=== PATIENT | female | born 1950 | race Caucasian/White ===

== ENCOUNTER 2018-06-28 18:08 | Inpatient (IN) | payer OTHER ==
[2018-06-28] MEDS ORDERED: NS 500 ML IV ONE (18:18)
--- NOTE | 2018-06-28 18:39 | EDPHY ---
H & P Time Seen by Provider: 06/28/18 18:10 HPI/ROS: HPI Swollen painful left leg. 67-year-old female by private vehicle. This patient flew here from [place] on June 18. She reports that for the last 2 weeks she has had intermittent swelling and a sensation of fullness and tightness in her left lower extremity. She reports that she would notice swelling but that it would go away. She reports over the last 2 days the swelling has been more persistent and has not gone away and she has had pain which she describes as a tight feeling throughout her left lower extremity. She reports that for the last 24 hr the swelling has gotten worse and she has developed a purplish discoloration to the entire left lower extremity. Denies chest pain or shortness of breath. She is on hormone replacement therapy, Premarin. No history of coagulopathy. ROS: Constitutional: No fever, no chills. No weakness. Eyes: No discharge. No changes in vision. ENT: No sore throat. No nasal congestion or rhinorrhea. Respiratory: No cough. No shortness of breath. Cardiac: No chest pain, no palpitations. Gastrointestinal: No abdominal pain, no vomiting, no diarrhea. Genitourinary: No hematuria. No dysuria or increased frequency with urination. Musculoskeletal: No back pain. No neck pain. As above. Skin: As above. Neurological: No headache. No focal weakness or altered sensation. Past medical history: Cholecystectomy, appendectomy, tonsillectomy, Paget's disease of bone. As above. Social history: Nonsmoker. Here by herself. She is from [place]. Physical Exam: General Appearance: Alert, no distress. This patient is responding to questions appropriately and in full sentences. This patient appears well- hydrated and well-nourished. Eyes: Pupils equal and round no pallor or injection. No lid edema, erythema or injection. Left lower extremity exam: Diffuse swelling and asymmetrical enlargement relative to the right lower extremity throughout. She has a faint ecchymosis throughout her thigh and leg which is circumferential. She has normal capillary refill and sensation in her toes. She has a palpable dorsalis pedis pulse and the left lower extremity is overall neurovascularly intact. There is no associated warmth or erythema. Respiratory: There are no retractions, lungs are clear to auscultation with good air movement bilaterally. Cardiovascular: Regular rate and rhythm. No murmur. Gastrointestinal: Abdomen is soft and nontender, no masses, bowel sounds normal. No focal tenderness at McBurney's point. No Ferrell sign. Neurological: Motor sensory function is grossly intact. Cranial nerves are normal. Gait is normal. Skin: Warm and dry, no rashes. Musculoskeletal: Neck is supple and nontender. Extremities are symmetrical except noted above. All joints range without pain or impingement. Psychiatric: No agitation. No depression. Database: EKG: EKG time is 6:44 p.m.; EKG shows a narrow complex normal sinus rhythm with a ventricular rate of 96. Prolonged QT interval noted. The FL, QRS, intervals are within normal limits. There are no ST-T wave changes indicative of ischemic or injury pattern. No evidence of right heart strain. Interpreted by me. Imaging: Left lower extremity ultrasound: Significant for a dense iliac vein thrombosis. Downstream veins are swollen and tense. Results discussed with staff radiologist Dr. Sukumar Chisholm. Procedures: Emergency department course: Triage vital signs reviewed. She is moderately hypertensive and tachycardic at 118. She is afebrile. IV was placed. She was placed on a cardiac cath rn. EKG obtained and reviewed by myself. Patient's presentation is consistent with extensive DVT. Ultrasound ordered of the left lower extremity. Patient declines pain medication. 8:10 p.m., spoke with Dr. Sukumar Chisholm. IR consult ordered. Patient will be admitted to the hospitalist service and transferred to [facility]. Patient started on IV heparin per protocol in the emergency department. Results of ultrasound and diagnosis discussed with the patient and family. All of their questions were answered. I spoke with on-call hospitalist Dr. Juaquin Cary. Case discussed in detail with him. He accepts this patient for admission to the hospital service PCU. He will follow up on IR consultation. The patient's remaining emergency department course under my care has been uneventful. The patient was transferred in stable condition by ambulance. Differential Diagnosis: The differential diagnosis on this patient includes but is not limited to left lower extremity DVT, factor 5 Leiden deficiency, protein kinase C deficiency, antiphospholipid syndrome, May-Thurner syndrome, PCD. This represents a partial list of diagnoses considered. These considerations are based on history , physical exam, past history, reassessment and diagnostic testing. Smoking Status: Former smoker Constitutional: Initial Vital Signs Temperature (C) 37.3 C 06/28/18 18:12 Heart Rate 118 H 06/28/18 18:12 Respiratory Rate 18 06/28/18 18:12 Blood Pressure 155/103 H 06/28/18 18:12 O2 Sat (%) 96 06/28/18 18:12 O2 Delivery Mode Room Air Allergies/Adverse Reactions: codeine Allergy (Verified 06/28/18 18:21) Pt reports nausea/vomiting latex Allergy (Verified 06/28/18 18:21) Pt reports blister Home Medications: Medication Instructions Recorded Premarin 06/28/18 Probiotic 06/28/18 Restasis Multidose 06/28/18 Medical Decision Making - Diagnostics Imaging Results: Imaging Impressions Extremity Venous Study 06/28/18 18:17 Impression: Left iliac vein thrombosis with secondary venous hypertension more inferiorly; possible May Thurner syndrome. Results called to Dr. Lucian Luna at 7:50 PM - Data Points Laboratory Results: Laboratory Results 06/28/18 18:32 06/28/18 18:32 06/28/18 06/28/18 06/28/18 18:32 18:32 18:32 WBC 11.93 10^3/uL H 10^3/uL (3.80-9.50) RBC 4.67 10^6/uL 10^6/uL (4.18-5.33) Hgb 14.3 g/dL g/dL (12.6-16.3) Hct 41.3 % % (38.0-47.0) MCV 88.4 fL fL (81.5-99.8) MCH 30.6 pg pg (27.9-34.1) MCHC 34.6 g/dL g/dL (32.4-36.7) RDW 12.4 % % (11.5-15.2) Plt Count 257 10^3/uL 10^3/uL (150-400) MPV 10.6 fL fL (8.7-11.7) Neut % (Auto) 74.5 % H % (39.3-74.2) Lymph % (Auto) 16.3 % % (15.0-45.0) [place] % (Auto) 7.9 % % (4.5-13.0) Eos % (Auto) 0.6 % % (0.6-7.6) Baso % (Auto) 0.4 % % (0.3-1.7) Nucleat RBC Rel Count 0.0 % % (0.0-0.2) Absolute Neuts (auto) 8.88 10^3/uL H 10^3/uL (1.70-6.50) Absolute Lymphs (auto) 1.95 10^3/uL 10^3/uL (1.00-3.00) Absolute Monos (auto) 0.94 10^3/uL H 10^3/uL (0.30-0.80) Absolute Eos (auto) 0.07 10^3/uL 10^3/uL (0.03-0.40) Absolute Basos (auto) 0.05 10^3/uL 10^3/uL (0.02-0.10) Absolute Nucleated RBC 0.00 10^3/uL 10^3/uL (0-0.01) Immature Gran % 0.3 % % (0.0-1.1) Immature Gran # 0.04 10^3/uL 10^3/uL (0.00-0.10) PT 13.1 SEC SEC (12.0-15.0) INR 0.97 (0.83-1.16) APTT 26.3 SEC SEC (23.0-38.0) Sodium 137 mEq/L mEq/L (135-145) Potassium 4.3 mEq/L mEq/L (3.3-5.0) Chloride 101 mEq/L mEq/L (97-110) Carbon Dioxide 23 mEq/l mEq/l (22-31) Anion Gap 13 mEq/L mEq/L (8-16) BUN 17 mg/dL mg/dL (7-23) Creatinine 0.8 mg/dL mg/dL (0.6-1.0) Estimated GFR > 60 Glucose 121 mg/dL H mg/dL (70-100) Calcium 9.8 mg/dL mg/dL (8.5-10.4) Medications Given: Discontinued Medications Heparin Sodium (Porcine) (Heparin Injection) 0 unit IVP EDNOW ONE Stop: 06/28/18 19:53 Last Admin: 06/28/18 20:03 Dose: 5.64 ml Sodium Chloride (Ns) 500 mls @ 1,000 mls/hr IV EDNOW ONE PRN Reason: Protocol Stop: 06/28/18 18:47 Last Admin: 06/28/18 18:36 Dose: 500 mls Heparin Sodium (Porcine) (Heparin 50 Units/Ml (Premix)) 500 mls @ 0 mls/hr IV EDNOW ONE; Per Protocol PRN Reason: Protocol Stop: 06/28/18 19:53 Last Admin: 06/28/18 20:22 Dose: 500 mls Departure - Departure Disposition: [facility] Clinical Impression: Left leg DVT
[2018-06-28] MEDS ORDERED: ONDANSETRON 4 MG/2 ML VIAL ONE (18:41)
[2018-06-28] MEDS ORDERED: HEPARIN 1000 UNIT/1 ML MDV ONE (19:38)
[2018-06-28] MEDS ORDERED: HEPARIN 10,000 UNIT/10 ML MDV (1,000 UNIT/ML) IVP ONE (19:52)
[2018-06-28] MEDS ORDERED: HEPARIN/DEXTROSE 500 ML IV ONE (19:52)
[2018-06-28 19:55] LABS: PLATELET COUNT 257 10^3/uL (150-400)
[2018-06-28 20:03] LABS: INR 0.97 (0.83-1.16); PROTIME(PATIENT) 13.1 SEC (12.0-15.0)
[2018-06-28] MEDS ORDERED: ONDANSETRON DISINTEGRATING 4 MG TAB PO PRN (22:02)
[2018-06-28] MEDS ORDERED: oxyCODONE IR 5 MG TAB PO PRN (22:02)
[2018-06-28] MEDS ORDERED: HEPARIN 10,000 UNIT/10 ML MDV (1,000 UNIT/ML) IVP PRN (22:06)
[2018-06-28] MEDS ORDERED: HEPARIN/DEXTROSE 500 ML IV SCH (22:15)
--- NOTE | 2018-06-28 23:58 | PDGENHP ---
History and Physical - Chief Complaint Leg pain - History of Present Illness 67 yo F w/ hx of Paget's disease presents with L leg pain. Patient first noticed L calf discomfort about 2 weeks ago. She lives in [place] and decided to travel to [place] anyway because she was having minimal symptoms. While hiking here her leg discomfort became worse. In addition, she developed a redness to her skin that was concerning. She presented to the [facility] where U/S revealed L iliac vein thrombosis and possible May Thurner syndrome. Case was discussed with IR who requested patient be admitted for likely thrombolysis in the morning. She denies chest pain or shortness of breath. Case discussed with Dr. Cary, records reviewed in EMR. History Information - Allergies/Home Medication List Allergies/Adverse Reactions: codeine Allergy (Verified 06/28/18 18:21) Pt reports nausea/vomiting latex Allergy (Verified 06/28/18 18:21) Pt reports blister Home Medications: Premarin 1 supp VG DAILY 06/28/18 [Last Taken Unknown] Probiotic 1 cap PO HS 06/28/18 [Last Taken Unknown] cycloSPORINE [Restasis Multidose] 1 drop OP BID 06/28/18 [Last Taken 06/28/18 09 :00] I have personally reviewed and updated: family history, medical history - Past Medical History Additional medical history: Paget's disease - Surgical History Reports: appendectomy, cholecystectomy - Family History Additional family history: Denies family hx of VTE - Social History Smoking Status: Former smoker Review of Systems Review of Systems: ROS: 10pt was reviewed & negative except for what was stated in HPI & below Physical Exam Physical Exam: Temp Pulse Resp BP Pulse Ox 36.7 C 78 20 131/86 H 97 06/28/18 22:19 06/28/18 22:19 06/28/18 22:19 06/28/18 22:19 06/28/18 22:19 Constitutional: no apparent distress, not in pain Eyes: PERRL, EOMI Ears, Nose, Mouth, Throat: moist mucous membranes, no oral mucosal ulcers Cardiovascular: regular rate and rhythym, no murmur, rub, or gallop Respiratory: no respiratory distress, clear to auscultation Gastrointestinal: normoactive bowel sounds, soft, non-tender abdomen Skin: warm, mottled (LLE), erythema (LLE) Musculoskeletal: full muscle strength, other (Mild L calf tenderness) Neurologic: AAOx3, CN II-XII Intact Psychiatric: interacting appropriately, not anxious Lab Data & Imaging Review 06/28/18 18:32 06/28/18 18:32 WBC 11.93 10^3/uL (3.80-9.50) H 06/28/18 18:32 RBC 4.67 10^6/uL (4.18-5.33) 06/28/18 18: Hgb 14.3 g/dL (12.6-16.3) 06/28/18 18: Hct 41.3 % (38.0-47.0) 06/28/18 18: MCV 88.4 fL (81.5-99.8) 06/28/18 18: MCH 30.6 pg (27.9-34.1) 06/28/18 18: MCHC 34.6 g/dL (32.4-36.7) 06/28/18 18: RDW 12.4 % (11.5-15.2) 06/28/18 18: Plt Count 257 10^3/uL (150-400) 06/28/18 18: MPV 10.6 fL (8.7-11.7) 06/28/18 18: Neut % (Auto) 74.5 % (39.3-74.2) H 06/28/18 18: Lymph % (Auto) 16.3 % (15.0-45.0) 06/28/18 18: [place] % (Auto) 7.9 % (4.5-13.0) 06/28/18 18: Eos % (Auto) 0.6 % (0.6-7.6) 06/28/18 18: Baso % (Auto) 0.4 % (0.3-1.7) 06/28/18 18: Nucleat RBC Rel Count 0.0 % (0.0-0.2) 06/28/18 18: Absolute Neuts (auto) 8.88 10^3/uL (1.70-6.50) H 06/28/18 18:32 Absolute Lymphs (auto) 1.95 10^3/uL (1.00-3.00) 06/28/18 18:32 Absolute Monos (auto) 0.94 10^3/uL (0.30-0.80) H 06/28/18 18:32 Absolute Eos (auto) 0.07 10^3/uL (0.03-0.40) 06/28/18 18:32 Absolute Basos (auto) 0.05 10^3/uL (0.02-0.10) 06/28/18 18: Absolute Nucleated RBC 0.00 10^3/uL (0-0.01) 06/28/18 18:32 Immature Gran % 0.3 % (0.0-1.1) 06/28/18 18: Immature Gran # 0.04 10^3/uL (0.00-0.10) 06/28/18 18:32 PT 13.1 SEC (12.0-15.0) 06/28/18 18:32 INR 0.97 (0.83-1.16) 06/28/18 18:32 APTT 26.3 SEC (23.0-38.0) 06/28/18 18:32 Sodium 137 mEq/L (135-145) 06/28/18 18:32 Potassium 4.3 mEq/L (3.3-5.0) 06/28/18 18:32 Chloride 101 mEq/L (97-110) 06/28/18 18:32 Carbon Dioxide 23 mEq/l (22-31) 06/28/18 18:32 Anion Gap 13 mEq/L (8-16) 06/28/18 18:32 BUN 17 mg/dL (7-23) 06/28/18 18:32 Creatinine 0.8 mg/dL (0.6-1.0) 06/28/18 18:32 Estimated GFR > 60 06/28/18 18:32 Glucose 121 mg/dL (70-100) H 06/28/18 18:32 Calcium 9.8 mg/dL (8.5-10.4) 06/28/18 18:32 Imaging Review: Imaging Impressions Extremity Venous Study 06/28/18 18:17 Impression: Left iliac vein thrombosis with secondary venous hypertension more inferiorly; possible May Thurner syndrome. Results called to Dr. Lucian Luna at 7:50 PM Assessment & Plan Assessment: 67 yo F w/ hx of Paget's disease presents with LLE DVT. Plan: 1. LLE DVT - U/S revealed left iliac vein thrombosis with secondary venous hypertension more inferiorly and possible May Thurner syndrome. She does take Premarin, which could be a contributing risk factor. Otherwise, this even seems unprovoked as she denies prolonged immobility, surgery, or trauma. She has no personal or family history of blood clots. - Heparin gtt - NPO @ [place] - LLE venogram ordered - IR to evaluate for thrombolysis in the morning - q2h doppler pulse checks ordered 2. Paget's disease - Not currently on treatment for this. Diet - NPO @ [place] Code - Full Ppx - Heparin gtt Dispo - Admit under observation status
[2018-06-29 04:27] LABS: PLATELET COUNT 207 10^3/uL (150-400); PROTIME(PATIENT) 14.4 SEC (12.0-15.0)
[2018-06-29] MEDS: ACETAMINOPHEN 325 MG TAB PO PRN (10:20)
--- NOTE | 2018-06-29 12:07 | HOSPPROG ---
Hospitalist Progress Note Assessment/Plan: 7-year-old woman admitted with increased left lower extremity swelling found to have a large DVT. # DVT rule out May-Thurner syndrome. * Thrombolysis and angiogram today * Will follow up with interventional radiology postprocedure * Continue heparin and transition to anticoagulation post procedure Subjective: Patient new to me and chart reviewed. No shortness of breath or chest pain currently. Just swelling in her left leg Objective: Vital Signs Temp Pulse Resp BP Pulse Ox 37.2 C 82 20 117/79 93 06/29/18 08:00 06/29/18 08:00 06/29/18 08:00 06/29/18 08:00 06/29/18 08:00 Laboratory Results 06/29/18 04:08 06/29/18 04:08 06/28/18 06/29/18 06/30/18 05:59 05:59 05:59 Intake Total 911.4 136 Balance 911.4 136 PT 14.4 SEC (12.0-15.0) 06/29/18 04:08 INR 1.10 (0.83-1.16) 06/29/18 04:08 - Physical Exam Constitutional: no apparent distress, not in pain Eyes: PERRL, anicteric sclera Ears, Nose, Mouth, Throat: moist mucous membranes Cardiovascular: regular rate and rhythym, no murmur, rub, or gallop, edema ( Left lower extremity, nonpitting slight discoloration) Respiratory: no respiratory distress, no rales or rhonchi, clear to auscultation Gastrointestinal: normoactive bowel sounds, soft, non-tender abdomen Genitourinary: no bladder fullness Skin: warm, normal color Musculoskeletal: full muscle strength Neurologic: AAOx3 Psychiatric: interacting appropriately ICD10 Worksheet Patient Problems: Problems Problem Status Onset Left leg DVT Acute
--- NOTE | 2018-06-29 12:16 | ASMTCMCOM ---
CM Note CM Note Notes: Reviewed pt in rounds, she was admitted for an Iliac vein thrombosis. Pt is visiting from [place], she is staying with a friend and has a son in [place]. She is scheduled for a procedure at noon and will then transfer to ICU. Anticipate she will return to friends home when medically stable, CM available for any changes. DC Plan: Independent Date Signed: 06/29/2018 12:15 PM Electronically Signed By:Jennifer Purcell RN
[2018-06-29] MEDS ORDERED: NALOXONE HCL 0.4 MG/ML INJ IVP PRN (12:48)
[2018-06-29] MEDS ORDERED: FLUMAZENIL 0.5 MG/5 ML MDV IVP PRN (12:48)
--- NOTE | 2018-06-29 13:48 | PDPROPOC ---
Sedation Plan of Care Sedation Plan of Care: vital signs stable, mental status noted, patient educated of risks, benefits, alternatives, patient can tolerate sedation ASA Classification: ASA 2 Planned drugs: fentanyl, midazolam Mallampati Score: Class 2 Mallampati Reference Image: Patient passed 3-3-2 rule?: Yes
[2018-06-29] MEDS: MIDAZOLAM 2 MG/2 ML VIAL IVP PRN (13:51)
[2018-06-29] MEDS: fentaNYL 100 MCG/2 ML INJ IVP PRN (13:51)
[2018-06-29] MEDS: ONDANSETRON 4 MG/2 ML VIAL IVP PRN (13:55)
[2018-06-29] MEDS ORDERED: HEPARIN/DEXTROSE 500 ML IV SCH (14:45)
[2018-06-29] MEDS ORDERED: ONDANSETRON 4 MG/2 ML VIAL IVP PRN (14:45)
[2018-06-29] MEDS ORDERED: PROMETHAZINE HCL 25 MG/ML INJ IVP PRN (14:45)
--- NOTE | 2018-06-29 14:49 | PDRADPN ---
Radiology Procedure Note Date of Procedure: 06/29/18 Radiologist: Yuliet Dixon Anesthesia: IV Sedation Pre-op Diagnosis: LLE CLOT Post-op Diagnosis: SAME Indication: SEVERE SWELLING AND PAIN Procedure: LLE VENOGRAM WITH TPA LYSIS Finding(s): EXTENSIVE LLE CLOT. MAY-THURNER SYNDROME Inf/Abcess present in the surg proc area at time of surgery?: No
[2018-06-29] MEDS ORDERED: IOPAMIDOL (ISOVUE-300) 100 ML BTL ONE (14:50)
[2018-06-29] MEDS ORDERED: ALTEPLASE 5 MG in NS 100 ML IV SCH (15:00)
[2018-06-29] MEDS: ALTEPLASE 5 MG in NS 100 ML IV SCH ×2 (18:20→20:46)
[2018-06-29] MEDS: LORazepam 1 MG TAB PO PRN (20:46)
[2018-06-29] MEDS: Cyclosporine [Restasis Multidose] 1 DROP OP SCH (21:00)
[2018-06-30] MEDS: ALTEPLASE 5 MG in NS 100 ML IV SCH ×2 (01:20→05:48)
[2018-06-30] MEDS: LORazepam 1 MG TAB PO PRN ×2 (01:46→20:59)
[2018-06-30 05:56] LABS: PLATELET COUNT 180 10^3/uL (150-400)
--- NOTE | 2018-06-30 08:42 | HOSPPROG ---
Hospitalist Progress Note Objective: Vital Signs Temp Pulse Resp BP Pulse Ox 37.4 C 93 20 134/73 H 96 06/30/18 08:00 06/30/18 08:00 06/30/18 08:00 06/30/18 08:00 06/30/18 08:00 Laboratory Results 06/30/18 05:39 06/30/18 05:39 06/29/18 06/30/18 07/01/18 06:59 06:59 06:59 Intake Total 911.4 2216 Output Total 900 Balance 911.4 1316 PT 14.4 SEC (12.0-15.0) 06/29/18 04:08 INR 1.10 (0.83-1.16) 06/29/18 04:08 ICD10 Worksheet Patient Problems: Problems Problem Status Onset Left leg DVT Acute
--- NOTE | 2018-06-30 08:51 | PDMN ---
Medical Necessity Medical necessity: [facility] M350 DVT: 67 yo w/ LLE DVT, IR evaluation shows extensive LLE Clot, s/p LLE venogram with TPA lysis, change to IP status @ [id number]
[2018-06-30] MEDS: Cyclosporine [Restasis Multidose] 1 DROP OP SCH ×2 (09:19→21:00)
--- NOTE | 2018-06-30 10:21 | HOSPPROG ---
Hospitalist Progress Note Assessment/Plan: 7-year-old woman admitted with increased left lower extremity swelling found to have a large DVT. # DVT secondary to May-Thurner syndrome. S/P TPA thrombolysis overnight. Plan to reevaluate today and place stent * Heparin/TPA * Lysis follow up with stent placement today * transition to Oral anticoagulants after proceedure when OK with Dr. Dixon. Subjective: No cp or sob. tired of being flat on her back. Objective: Vital Signs Temp Pulse Resp BP Pulse Ox 37.5 C 99 15 133/71 H 98 06/30/18 09:00 06/30/18 09:00 06/30/18 09:00 06/30/18 09:00 06/30/18 09:00 Laboratory Results 06/30/18 05:39 06/30/18 05:39 06/29/18 06/30/18 07/01/18 05:59 05:59 05:59 Intake Total 730 600 Output Total 900 Balance -170 600 PT 14.4 SEC (12.0-15.0) 06/29/18 04:08 INR 1.10 (0.83-1.16) 06/29/18 04:08 - Physical Exam Constitutional: no apparent distress Cardiovascular: regular rate and rhythym, edema (LLE) Respiratory: no respiratory distress Psychiatric: interacting appropriately ICD10 Worksheet Patient Problems: Problems Problem Status Onset Left leg DVT Acute
[2018-06-30] MEDS ORDERED: PROTAMINE SULFATE 50 MG/5 ML VIAL IVP PRN (10:35)
[2018-06-30] MEDS ORDERED: MEPERIDINE 25 MG/ML SYR IVP PRN (10:35)
[2018-06-30] MEDS ORDERED: HEPARIN 10,000 UNIT/10 ML MDV (1,000 UNIT/ML) IVP PRN (10:35)
[2018-06-30] MEDS ORDERED: ALTEPLASE 2 MG VIAL IVP PRN (10:35)
[2018-06-30] MEDS ORDERED: FLUMAZENIL 0.5 MG/5 ML MDV IVP PRN (10:35)
[2018-06-30] MEDS ORDERED: NALOXONE HCL 0.4 MG/ML INJ IVP PRN (10:35)
[2018-06-30] MEDS ORDERED: MIDAZOLAM 2 MG/2 ML VIAL IVP PRN (10:35)
[2018-06-30] MEDS ORDERED: GLUCAGON HCL 1 MG VIAL IVP PRN (10:35)
[2018-06-30] MEDS ORDERED: fentaNYL 100 MCG/2 ML INJ IVP PRN (10:35)
[2018-06-30] MEDS ORDERED: NS 1,000 ML IV SCH (10:45)
[2018-06-30] MEDS ORDERED: NALOXONE HCL 0.4 MG/ML INJ ONE (10:46)
[2018-06-30] MEDS ORDERED: fentaNYL 100 MCG/2 ML INJ ONE (10:46)
[2018-06-30] MEDS ORDERED: MIDAZOLAM 2 MG/2 ML VIAL ONE (10:46)
[2018-06-30] MEDS ORDERED: FLUMAZENIL 0.5 MG/5 ML MDV IVP ONE (10:46)
[2018-06-30] MEDS ORDERED: IOPAMIDOL (ISOVUE-300) 100 ML BTL ONE (11:11)
[2018-06-30] MEDS: ONDANSETRON 4 MG/2 ML VIAL IVP PRN ×2 (11:15→15:20)
[2018-06-30] MEDS: MIDAZOLAM 2 MG/2 ML VIAL IVP PRN (11:36)
[2018-06-30] MEDS: fentaNYL 100 MCG/2 ML INJ IVP PRN (12:36)
--- NOTE | 2018-06-30 12:46 | PDRADPN ---
Radiology Procedure Note Date of Procedure: 06/30/18 Radiologist: Yuliet Dixon Anesthesia: IV Sedation Pre-op Diagnosis: MAY-THURNER SYNDROME Post-op Diagnosis: SAME Indication: LYSIS FOLLOW UP Procedure: venogram, stent placement Finding(s): complete clot lysis. stent placement basically reconstructed an otherwise non-existing CIV and EIV. Inf/Abcess present in the surg proc area at time of surgery?: No
[2018-06-30] MEDS: ACETAMINOPHEN 325 MG TAB PO PRN (20:59)
[2018-06-30] MEDS: APIXABAN 5 MG TAB PO SCH (20:59)
[2018-07-01] MEDS ORDERED: CLOPIDOGREL BISULFATE 75 MG TAB PO SCH (09:00)
[2018-07-01] MEDS: Cyclosporine [Restasis Multidose] 1 DROP OP SCH (09:45)
[2018-07-01] MEDS: APIXABAN 5 MG TAB PO SCH (09:49)
[2018-07-01 11:33] VITALS: BP 115/69
--- NOTE | 2018-07-01 14:01 | ASDISCHSUM ---
Discharge Information Plan Status:Home with No Needs Medically Cleared to Leave:07/01/2018 Discharge Date:07/01/2018 CM D/C Disposition:Home, Routine, Self-Care ADT D/C Disposition:Home, Routine, Self-Care Projected Discharge Date:07/01/2018 02:00 PM Transportation at D/C:Family Discharge Delay Reason: Follow-Up Date:07/01/2018 02:00 PM Discharge Slot: Final Diagnosis:L LE DVT Placement Information Patient Contact Information Contact Name:JULIO Relationship:Duane Address: Home Phone: City: [facility] Phone: State/[place] Code: Email: Financial Information Financial Class:Medicare Primary Plan Desc:MEDICARE INPATIENT Primary Plan Number:[id number] Secondary Plan Desc:[facility] Secondary Plan Number:[id number] Assessment Information LACE LACE Length of stay for Answers: 2 days current admission Acuity / Level of Answers: Yes Care: Did the patient have an inpatient admission? Comorbidities - select Answers: Peripheral vascular all that apply disease Other Notes: Paget's disease, Iliac vein thrombosis # of Emergency department Answers: 1-2 visits in the last 6 months Score: 8 Date Signed: 07/01/2018 02:00 PM Electronically Signed By:Tori Camacho LCSW [facility] CM Progress Note CM Note CM Note Notes: Reviewed pt in rounds, she was admitted for an Iliac vein thrombosis. Pt is visiting from [place], she is staying with a friend and has a son in [place]. She is scheduled for a procedure at noon and will then transfer to ICU. Anticipate she will return to friends home when medically stable, CM available for any changes. DC Plan: Independent Date Signed: 06/29/2018 12:15 PM Electronically Signed By:Jennifer Purcell RN Case Management Discharge Plan Note Case Management Discharge Discharge Order Complete? Answers: Yes Patient to Obtain Answers: via Family Medications Transportation Arranged Answers: Family/Friends Transport will Pick (Date 07/01/2018 02:00 PM & Time) Family Notified Answers: Yes Notes: Family to transport Discharge Comments Notes: Patient has been discharged home. No discharge needs. She will be returning to [facility] Date Signed: 07/01/2018 01:59 PM Electronically Signed By:Tori Camacho LCSW Intervention Information Intervention Type:*Incorrect Registration Date of Service:06/28/2018 11:07 AM Patient Type:Inpatient Staff Member:JOANNE Orlando, Krissy Hours: Discipline: Severity: Comment:
--- NOTE | 2018-07-01 14:05 | GDS ---
DIAGNOSES: Large left lower extremity deep vein thrombosis due to May-Thurner syndrome. Status post tissue plasminogen activator lysis and stent placement. PROCEDURES DONE: 1. Lower extremity deep vein thrombosis showing extensive clot, left lower extremity. 2. Abdominal and pelvis CT scan, chronic resorption and thrombosis of the common iliac vein consiste nt with chronic May-Thurner syndrome. 3. Tissue plasminogen activator lysis, status post vascular stent placement by Interventional Radiol saurabh. CONSULTATIONS: Interventional Radiology, Dr. Yuliet Dixon. HOSPITAL COURSE: The patient is a 67-year-old woman who presents with left lower extremity pain and swelling. Evaluation included ultrasound which revealed large left lower extremity DVT. Followup sc anning did reveal findings consistent with May-Thurner syndrome. She underwent tPA lysis and stent p lacement and did well postoperatively. She did have quite a bit of bruising, however, at the groin s ite postprocedure. At this time, she is feeling better. She needs to be on Plavix temporarily as we ll as Eliquis for anticoagulation for the next 6 months. Unfortunately, she does live in [place] wh ere her primary care provider is. She will end up following up with him. CONDITION ON DISCHARGE: Good. Vital signs are stable. DISCHARGE MEDICATIONS: Please see discharge medication form. FOLLOWUP: She will follow up with Dr. Yuliet Dixon prior to going back to [place]. When she flies back to [place] 1 week from now, she will follow up with her primary care provider. She currently is on Eliquis at 5 mg b.i.d. However, when she goes back to [place], she will work with this primary care provider regarding ongoing anticoagulant, whether she can continue Eliquis or she needs to change to warfarin depending on her insurance. I was able to get her a short supply of Eliquis prior to discha rge. Total time spent with patient on day of discharge and coordination of care is 35 minutes. /[id number]/MODL
== END 2018-07-01 16:15 | disposition home or self-care (01) | DRG 254 ==
LOC: CED 18:08 → INTOOBSV 20:03 → CEDHOLD 20:03 → F2W 21:43 → F2N 06-29 13:03 → OBSVTOIN 06-29 17:33
PROVIDERS: ADMIT Internal Medicine; ATTEND Internal Medicine
PROC: 3E03317 Introduction of Other Thrombolytic into Peripheral Vein, Percutaneous Approach (ICD-10-PCS; principal; 2018-06-29)
PROC: 067D3DZ Dilation of Left Common Iliac Vein with Intraluminal Device, Percutaneous Approach (ICD-10-PCS; 2018-06-30)
DX: I82.422 Acute embolism and thrombosis of left iliac vein (principal); Z87.891 Personal history of nicotine dependence
CPT/HCPCS: 85520-90; 93971-PO; 96365; C1725; C1757; C1769; C1874; C1894; G0378; J1644; J2250; J2310; J2405; J2550; J2997; J3010; Q9967

== ENCOUNTER → 2018-07-02 | Outpatient (CLI) | payer OTHER | LOC: FIMAGING 13:51 | PROVIDERS: ATTEND Radiology Diagnostic Radiology | DX: Z09 Encounter for follow-up examination after completed treatment for conditions other than malignant neoplasm (principal); Z98.890 Other specified postprocedural states ==

== ENCOUNTER 2018-07-07 10:02 | Emergency (ER) | payer OTHER ==
[2018-07-07] MEDS ORDERED: IOPAMIDOL (ISOVUE 370) 100 ML BTL IV ONE (10:41)
--- NOTE | 2018-07-07 11:43 | EDPHY ---
H & P Time Seen by Provider: 07/07/18 10:09 HPI/ROS: CHIEF COMPLAINT: Chest tightness HISTORY OF PRESENT ILLNESS: Patient visiting from [place], arrived in [place] June 25. She states that when she got here she started doing some ED hikes but noticed left leg pain. Finally on June 28 she came into the emergency department and was found to have a DVT in her left leg. 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 This was stented and she was discharged from the hospital. She developed increased swelling to the leg the next day and was readmitted to the hospital and received a 2nd stent on . She was then released Saturday, 3 days ago. Today she states that she has felt some mild chest tightness at times, intermittent that she describes as a pressure sensation. This morning it seemed slightly worse so she called the interventional radiologists office and was told to come into the emergency department for evaluation. Again she states that she has mild chest tightness or pressure rated 3/10. She denies any shortness of breath. She has had no nausea vomiting or abdominal pain. She has had some diarrhea. She has had no fevers or chills. No cough or upper respiratory infectious symptoms. She is currently on both Plavix and Eliquis for anticoagulation. REVIEW OF SYSTEMS: Constitutional: No fever, no chills. Eyes: No discharge. ENT: No sore throat. Cardiovascular: Per HPI. Respiratory: No cough, no shortness of breath. Gastrointestinal: No abdominal pain, no vomiting. Genitourinary: No dysuria. Musculoskeletal: No back pain. Skin: No rashes. Neurological: No headache. General Appearance: Alert, no distress. Eyes: Pupils equal and round no pallor or injection. ENT, Mouth: Mucous membranes moist. Respiratory: There are no retractions, lungs are clear to auscultation. Cardiovascular: Regular rate and rhythm. No murmurs rubs or gallops. Gastrointestinal: Abdomen is soft and nontender, no masses, bowel sounds normal. Neurological: Awake and alert, no focal neurologic deficits. Skin: Warm and dry, no rashes. Musculoskeletal: Neck is supple nontender. Extremities are symmetrical, full range of motion, no edema. Significant ecchymosis to the left groin and upper thigh. Distal left lower extremity warm and well perfused. No edema. Psychiatric: Patient is oriented X 3, there is no agitation. 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 Surgeries include cholecystectomy, appendectomy, tonsillectomy, cataracts. Social history: Occasional alcohol, nonsmoker since high school, denies drugs. Smoking Status: Former smoker Constitutional: Initial Vital Signs Heart Rate 94 07/07/18 10:08 Respiratory Rate 16 07/07/18 10:08 Blood Pressure 152/78 H 07/07/18 10:08 O2 Sat (%) 96 07/07/18 10:08 O2 Delivery Mode Room Air Allergies/Adverse Reactions: codeine Allergy (Verified 07/07/18 10:14) Pt reports nausea/vomiting latex Allergy (Verified 07/07/18 10:14) Pt reports blister Home Medications: Medication Instructions Recorded Apixaban [Eliquis] 0 mg PO BID 07/03/18 Clopidogrel Bisulfate [Plavix (*)] 75 mg PO DAILY 07/03/18 Medical Decision Making - Diagnostics EKG Interpretation: EKG shows normal sinus rhythm with a rate of 86. Normal axis, normal intervals, no acute ST T-wave changes to suggest ischemia or infarct. Impression normal EKG. Imaging Results: Imaging Impressions Chest/Thorax CTA 07/07/18 10:33 Impression: 1. No evidence of pulmonary embolic disease. Dr. Verma was notified of these findings by telephone at 11:45 AM on 07/07/2018 Imaging: Discussed imaging studies w/ banquet server on call Radiologist Differential Diagnosis: Differential diagnosis includes but is not limited to pulmonary embolism, pericarditis, acute coronary syndrome, palpitations, anxiety. After evaluation suspect patient's symptoms are related to her recent procedures. She has had multiple minor complaints during her two hospitalizations including chest tightness and pressure. Symptoms may be related to mild anxiety regarding her condition and that she is at higher altitude than normal. CT scan shows no abnormalities in the lungs, specifically no PE, pulmonary edema, pneumonia, vascular or cardiac abnormality. Low suspicion for acute coronary syndrome, discussed rule out, heart score, shared decision making with patient and she chooses to leave after single negative troponin. She will follow up with routing clerk and vascular surgeon in [place] when she returns to that state on Saturday. She has follow-up with Interventional Radiology this afternoon. Stable for continued outpatient care. - Data Points Laboratory Results: 07/07/18 07/07/18 11:29 10:48 POC Sodium 144 mEq/L mEq/L (135-145) POC Potassium 3.5 mEq/L mEq/L (3.3-5.0) POC Chloride 106.0 mEq/L mEq/L (97-110) POC Total CO2 23 mEq/L mEq/L (22-31) POC BUN 11 mg/dL mg/dL (7-23) POC Creatinine 0.9 mg/dL mg/dL (0.6-1.0) POC Glucose 120 mg/dL H mg/dL (70-100) POC Calcium 9.7 mg/dL mg/dL (8.5-10.4) POC Total Bilirubin 1.1 mg/dL mg/dL (0.1-1.4) POC AST 55 IU/L H IU/L (14-46) POC ALT 94 IU/L H IU/L (9-52) POC Alk Phosphatase 100 IU/L IU/L (38-126) POC Troponin I 0.00 ng/mL ng/mL (0.00-0.08) POC Total Protein 7.0 g/dL g/dL (6.3-8.2) POC Albumin 3.4 g/dL L g/dL (3.5-5.0) Point of Care Test Results: CBC CBC Collection Date 07/07/18 CBC Collection Time 10:35 WBC 7.6 RBC 3.8 HGB 11.8 HCT 34 PLT 377 Neut # 4.9 Neut 64.1 LYMPH # 1.7 LYMPH 22.1 Other WBC # 1 Other WBC 13.8 MCV 89.5 Chemistry 07/07/18 07/07/18 11:29 10:48 POC Sodium 144 mEq/L mEq/L (135-145) POC Potassium 3.5 mEq/L mEq/L (3.3-5.0) POC Chloride 106.0 mEq/L mEq/L (97-110) POC Total CO2 23 mEq/L mEq/L (22-31) POC BUN 11 mg/dL mg/dL (7-23) POC Creatinine 0.9 mg/dL mg/dL (0.6-1.0) POC Glucose 120 mg/dL H mg/dL (70-100) POC Calcium 9.7 mg/dL mg/dL (8.5-10.4) POC Total Bilirubin 1.1 mg/dL mg/dL (0.1-1.4) POC AST 55 IU/L H IU/L (14-46) POC ALT 94 IU/L H IU/L (9-52) POC Alk Phosphatase 100 IU/L IU/L (38-126) POC Troponin I 0.00 ng/mL ng/mL (0.00-0.08) POC Total Protein 7.0 g/dL g/dL (6.3-8.2) POC Albumin 3.4 g/dL L g/dL (3.5-5.0) Departure - Departure Clinical Impression: Chest pain Qualifiers: Chest pain type: unspecified Qualified Code(s): R07.9 - Chest pain, unspecified Condition: Good Instructions: Mechanical Thrombectomy (DC) Referrals: STATE,OUT OF [Other] - As per Instructions
[2018-07-07 12:45] VITALS: BP 140/91
--- NOTE | 2018-07-13 00:17 | CPEKG ---
Test Reason : OPEN Blood Pressure : / mmHG Vent. Rate : 086 BPM Atrial Rate : 082 BPM P-R Int : 126 ms QRS Dur : 086 ms QT Int : 375 ms P-R-T Axes : 071 070 040 degrees QTc Int : 449 ms Sinus rhythm, no acute. Confirmed by Ernestine Verma ([id number]) on 07/13/2018 12:16:13 AM Referred By: Confirmed By:Ernestine Verma
== END 2018-07-07 13:02 | disposition home or self-care (01) ==
LOC: CED 10:02
DX: R07.9 Chest pain, unspecified (principal); Z79.01 Long term (current) use of anticoagulants; Z87.891 Personal history of nicotine dependence; Z86.718 Personal history of other venous thrombosis and embolism; Z95.828 Presence of other vascular implants and grafts
CPT/HCPCS: 71275; 93005; 99285; Q9967; 80053-PO; 84484-PO